=== PATIENT | male | born 1950 | race Caucasian/White ===

== ENCOUNTER 2021-09-02 15:06 | Emergency (ER) | payer OTHER ==
[~2021-09-02] VITALS: Ht 177.8 cm; Wt 110.7 kg
[~2021-09-02 15:06] MED LIST: AVAPRO300 MG; FORTAMET1000 MG; IRON1TAB4
[2021-09-02] MEDS ORDERED: ELIQUIS2.5 MG PO (15:23)
[2021-09-02] MEDS ORDERED: LOSARTAN POTASS50 MG PO (15:24)
[2021-09-02] MEDS ORDERED: SIMVASTATIN20 MG PO (15:24)
[2021-09-02] MEDS ORDERED: TOPROL XL25 M1 PO (15:25)
[2021-09-02] MEDS ORDERED: SYNTHROID50 MCG PO (15:25)
[2021-09-02] MEDS ORDERED: DUI500 PO (19:09)
== END 2021-09-02 19:21 | disposition home or self-care (01) ==
LOC: ER 15:06
DX: R31.9 Hematuria, unspecified (principal); N39.0 Urinary tract infection, site not specified; I10 Essential (primary) hypertension; Z91.013 Allergy to seafood